=== PATIENT | male | born 1960 | race Caucasian/White ===

== ENCOUNTER → 2016-10-13 | Day surgery (SDC) | payer BC ==
[~2016-10-13] VITALS: Ht 180.3 cm; Wt 83.9 kg
[2016-10-13] VITALS (8 sets, daily range): BP systolic 113–145; BP diastolic 85–96
[~2016-10-13] MED LIST: DiphenhydrAMINE 50mg/ml Inj IVP PRN; Glycopyrrolate 0.2mg/ml 1ml Vial ONE; LR 1000ml 1,000 ML IVLG SCH; LR 1000ml ONE; Labetalol 5mg/ml 20ml vial IV PRN; Lidocaine 1% MPF 10mg/ml 5ml ONE; Propofol 10mg/ml 20ml IV ONE; SAW PALMETTO450 MG PO; VITAMIN D1000 UNI1 ORAL
--- NOTE | 2016-10-13 06:57 | Anethesia Preoperative Eval ---
Anesthesia Pre-op PMH/ROS General Date of Evaluation: Oct 13, 2016 Anesthesiologist: Rj ASA Score: ASA 2 Mallampati Score Class I : Soft palate, uvula, fauces, pillars visible Class II: Soft palate, uvula, fauces visible Class III: Soft palate, base of uvula visible Class IV: Only hard plate visible Mallampati Classification: Class II Surgeon: Vanessa Diagnosis: Screening Surgical Procedure: Colonoscopy Anesthesia History: none Family History: no anesthesia problems Allergies: Coded Allergies: No Known Allergies (Unverified , 10/13/16) Medications: see eMAR Past Medical History Cardiovascular: Reports: HTN, Denies: CAD, VT, arrhythmia, other, valve dz Pulmonary: Denies: COPD, OFELIA, asthma, other Gastrointestinal/Genitourinary: Reports: other - BPH, Denies: CRI, ESRD, GERD Neurologic/Psychiatric: Denies: CVA, TIA, dementia, depression/anxiety, other Endocrine: Denies: DM, hypothyroidism, other, steroids HEENT: Denies: YAKUTAT (L), YAKUTAT (R), cataract (L), cataract (R), glaucoma, other Hematology/Immune: Denies: DVT, anemia, bleeding disorder, other Musculoskeletal/Integumentary: Denies: DDD, DJD, OA, RA, edema, other PSxH Narrative: lung sx Anesthesia Pre-op Phys. Exam Physician Exam se chart Constitutional: NAD Cardiovascular: RRR Respiratory: CTA Airway Exam Mallampati Score: Class II MO: full ROM: full Anesthesia Pre-op A/P Labs see chart Studies Pre-op Studies: EKG - sr Risk Assessment & Plan Assessment: ASA II Plan: MAC Status Change Before Surgery: No Pre-Antibiotics Drug: N/A ANISH RAMSEY M.D. Oct 13, 2016 06:57
--- NOTE | 2016-10-13 07:29 | Immediate Post-Op Evaluation ---
Immediate Post-Op Evalulation Immediate Post-Op Evalulation Procedure: Colonoscopy Date of Evaluation: Oct 13, 2016 Time of Evaluation: 08:41 IV Fluids: 500 Blood Products: 0 Estimated Blood Loss: 0 Urinary Output: 0 Blood Pressure Systolic: 116 Blood Pressure Diastolic: 85 Pulse Rate: 62 Respiratory Rate: 18 O2 Sat by Pulse Oximetry: 98 Temperature (Fahrenheit): 97.9 Pain Score (1-10): 0 Nausea: No Vomiting: No Complications 0 Patient Status: awake, reacts, patent, none Hydration Status: adequate Drug: N/A ANISH RAMSEY M.D. Oct 13, 2016 07:29
--- NOTE | 2016-10-13 07:29 | 48 Hour Post Anesthesia Eval ---
Post Anesthesia Evaluation Procedure: Colonoscopy Date of Evaluation: Oct 13, 2016 Blood Pressure Systolic: 128 0: 82 Pulse Rate: 60 Respiratory Rate: 16 O2 Sat by Pulse Oximetry: 99 Airway: patent Nausea: No Vomiting: No Pain Intensity: 0 Hydration Status: adequate Cardiopulmonary Status: at baseline Mental Status/LOC: patient returned to baseline Post-Anesthesia Complications: 0 Follow-up care needed: ready to discharge ANISH RAMSEY M.D. Oct 13, 2016 07:29
--- NOTE | 2016-10-13 07:49 | Pre-Procedure Note/Attestation ---
Pre-Procedure Note/Attestation Complete Prior to Procedure Planned Procedure: not applicable Procedure Narrative: colon Indications for Procedure Pre-Operative Diagnosis: screen Attestation I attest that I discussed the nature of the procedure; its benefits; risks and complications; and alternatives (and the risks and benefits of such alternatives ), prior to the procedure, with the patient (or the patient's legal product sales representative). I attest that, if there was a reasonable possibility of needing a blood transfusion, the patient (or the patient's legal product sales representative) was given the [facility] standardized written summary, pursuant to the [place] Blood Safety Act ([place] Health and Safety Code # 1645, as amended). I attest that I re-evaluated the patient just prior to the surgery and that there has been no change in the patient's H&P, except as documented below: WESTLEY LUIS Oct 13, 2016 07:49
--- NOTE | 2016-10-13 09:39 | Endoscopy Procedure Note ---
Endoscopy Procedure Note Indication for Procedure: screen Procedures Performed: colonoscopy Operative Findings/Diagnosis: Distal ascending polyp-polypectomy Specimen: yes Pt Tolerated Procedure Well: Yes Estimated Blood Loss: minimal Anesthesiologist: See report Medication Given: see anesthesia record Implant(s) used?: No 50 yrs or older w/o bx or poly: Not Applicable 10yrs. F/U not recommended: No If not recommended, why?: Above average risk 10 yrs. F/U needed: No 18 years or older w/prev. colo: No <3yrs. since last colonoscopy: No Med reason:<3 yrs.: System Reason:<3 yrs.: Last colonoscopy >= to 3yrs: Yes WESTLEY LUIS Oct 13, 2016 09:39
--- NOTE | 2016-10-13 09:42 | Brief Operative Note ---
Immediate Post Operative Note Operative Note Chief Complaint: screening Pre-op Diagnosis: screen Procedure: colonoscopy with biopsy, cautery, snare polypectomy and endoclip placement Post-op Diagnosis: distal ascending colon polyp Surgeon: randall Anesthesiologist: see separate report Anesthesia: MAC, moderate sedation Specimen: yes Complications: none Condition: stable Fluids: see anesthesia report Estimated Blood Loss: minimal Drains: none Implant(s) used?: No WESTLEY LUIS Oct 13, 2016 09:42
--- NOTE | 2016-10-13 16:58 | Operative Note - Dictated ---
DATE OF OPERATION: 10/13/2016 PROCEDURE: Colonoscopy with polypectomy. SURGEON: Prachi Mendez M.D. ANESTHESIA: Please see the separate anesthesiologist notes for details. PRE-ENDOSCOPIC DIAGNOSES: Screening colonoscopy. POST-ENDOSCOPIC DIAGNOSES: Distal ascending colon polyp removed as described above with snare polypectomy. PROCEDURE: The procedure, its risks, indications, alternatives, and possible complications including, but not limited to, bleeding, infection, perforation, , and anesthesia complications were explained to the patient. An informed consent was obtained. A time-out was called and the patient was sedated. Rectal exam was done. The prostate did not show any evidence of nodules. The colonoscope was introduced in the rectum and advanced to the cecum without difficulty. The cecum was identified by the appearance of the ileocecal valve. The colonoscope was then gradually withdrawn and the mucosa examined carefully. In the region of the distal ascending colon, there was 1 cm polyp This polyp was injected underneath with saline to erase it first and then was removed with a polypectomy snare without complication. The base of the polypectomy site had a small rim of apparent remnant of the polyp tissue by visual inspection. This area was treated with a single application of the cold snare polypectomy and one biopsy to remove the remaining tissue. Some minor bleeding was noted at this time and this was treated with one Endoclip placement and application of a very short using the tip of the Endoclip and the applicator. At end of procedure, Endoclip was in good place. There was no bleeding and was no complications apparent. Lilibeth Ink was injected about 5 centimeters distal to the polypectomy site for future reference. The remainder of the colonoscopic examination was unremarkable. Retroflex view of the rectum was negative. The colonoscope was removed. The patient was sent to recovery in good condition. The patient was examined the postoperative area and he was feeling well with no abdominal complaints. COMPLICATIONS: None. ASSESSMENT: 1. This examination was notable for moderate-sized polyps in the ascending colon which were sent to pathology for review. The patient will be seen in followup and the results were reviewed with the patient. 2. Next interval colonoscopy will be based on results of pathology specimen. RECOMMENDATIONS: 1. Follow up biopsy results. 2. Clear liquid diet today and advance to solids tomorrow. 3. Outpatient followup. Prachi Mendez M.D. DR: Mahamed JOB#: [id number] CC:
== END | disposition home or self-care (01) ==
LOC: GAS 06:53
DX: Z12.11 Encounter for screening for malignant neoplasm of colon (principal); D12.2 Benign neoplasm of ascending colon; I10 Essential (primary) hypertension; N40.0 Benign prostatic hyperplasia without lower urinary tract symptoms; E66.3 Overweight; Z68.28 Body mass index [BMI] 28.0-28.9, adult
CPT/HCPCS: 45381; 45385; J2704; J7120; 94003; 94150